=== PATIENT | female | born 1990 | race Caucasian/White ===

== ENCOUNTER 2022-08-13 07:30 | Day surgery (SDC) | payer BC ==
[2022-08-12 11:32] VITALS: BMI 23.7
[2022-08-13] MEDS ORDERED: Scopolamine 1.5 mg/72 hour Patch ONE (09:21)
[2022-08-13] MEDS ORDERED: Midazolam HCl 2 mg/2 ml Vial ONE ×2 (09:28→09:59)
[2022-08-13] MEDS ORDERED: Fentanyl 250 MCG/5 ML VIAL ONE (09:59)
[2022-08-13] MEDS ORDERED: Ferric Subsulfate (ASTRINGYN) 8 GM VIAL ONE (10:01)
[2022-08-13] MEDS ORDERED: PROPOFOL 200 MG/20 ML VIAL ONE (10:15)
[2022-08-13] MEDS ORDERED: Ondansetron PF 4 MG/2 ML Vial ONE (10:15)
[2022-08-13] MEDS ORDERED: Dexamethasone 20 MG/5 ML VIAL ONE (10:15)
[2022-08-13] MEDS ORDERED: MINERAL OIL/WHITE PETROLATUM 3.5 GM TUBE ONE (10:43)
[2022-08-13] MEDS ORDERED: Hydrocodone-Acetamin 15 ML UDCUP ONE (12:10)
== END 2022-08-13 13:22 | disposition home or self-care (01) ==
LOC: SDC 07:30
PROVIDERS: ATTEND Otolaryngology Plastic Surgery within the Head & Neck
DX: J35.03 Chronic tonsillitis and adenoiditis (principal); J30.2 Other seasonal allergic rhinitis; J35.8 Other chronic diseases of tonsils and adenoids
CPT/HCPCS: 88304; J2250; J3010